=== PATIENT | male | born 1980 | race African-American/Black ===

== ENCOUNTER → 2016-11-09 | Outpatient (CLI) | payer OTHER ==
[~2016-11-09] MED LIST: CARAFATE S1 GM/10 ML PO; CLINDAMYCIN300 MG PO; METRONIDAZOLE500 MG PO; MOTRIN 200200 MG/TAB PO; NO HOME MEDICATIONS; TUSS PO; VICODIN 5/5001 UDTAB PO; ZITHROMAX Z PA250 MG PO
== END ==
LOC: COL.RAD 12:12
DX: S49.91XA Unspecified injury of right shoulder and upper arm, initial encounter (principal)

== ENCOUNTER 2018-03-03 10:26 | Emergency (ER) | payer SELFPAY ==
[~2018-03-03] VITALS: Ht 193 cm; Wt 75.0 kg
[2018-03-03 10:31] VITALS: BP 147/88; TEMP 99.4
[2018-03-03] MEDS ORDERED: AMOXICILLIN875 MG PO (11:28)
[2018-03-03 11:43] VITALS: PULSE 76
== END 2018-03-03 11:43 | disposition home or self-care (01) ==
LOC: COL.ER 10:26
DX: J03.90 Acute tonsillitis, unspecified (principal)

== ENCOUNTER 2018-09-22 06:27 | Emergency (ER) | payer SELFPAY ==
[~2018-09-22] VITALS: Ht 193 cm; Wt 70.5 kg
[~2018-09-22 06:27] MED LIST changes: +AMOXICILLIN875 MG PO
[2018-09-22 06:31] VITALS: TEMP 98.6
[2018-09-22 07:15] LABS: BASO # 0.1 (0.0-0.2); BASO % 0.6 % (0.0-2.0); EOS # 0.1 (0.0-0.7); EOS % 1.1 % (0-4.0); GRAN # 6.7 (1.4-6.5); GRAN % 63.8 % (42.2-75.2); HEMATOCRIT 39.7 % (42.0-52.0); HEMOGLOBIN 13.5 g/dl (13.5-18.0); LYMPH # 2.2 (1.2-3.4); LYMPH % 20.6 % (20.0-51.0); MEAN CELL VOLUME 87 fl (80.0-100.0); MEAN CORPUSCULAR HEMOGLOBIN 30 pg (27.0-31.0); MEAN CORPUSCULAR HGB CONC 34 g/dl (33.0-37.0); MEAN PLATELET VOLUME 8.8 fl (7.4-10.4); MONO # 1.4 (0.1-0.6); MONO % 13.7 % (1.7-9.3); PLATELET COUNT 216 K/mm3 (130-400); RED BLOOD COUNT 4.56 M/mm3 (4.20-5.60); REDCELL DISTRIBUTION WIDTH-CV 13.6 % (11.5-14.5)
[2018-09-22 07:19] LABS: INR 1.2 (0.8-3.0); PROTHROMBIN TIME 13.6 SECONDS (9.7-12.8)
[2018-09-22 07:36] LABS: PARTIAL THROMBOPLASTIN TIME 35.3 SECONDS (26.0-37.0)
[2018-09-22 07:37] LABS: ALANINE AMINOTRANSFERASE 14 U/L (21-72); ALBUMIN 3.9 gm/dL (3.5-5.0); ALKALINE PHOSPHATASE 63 U/L (50-136); ANION GAP 12 mmol/L (7-16); AST,SGOT 21 U/L (15-37); BILIRUBIN,TOTAL 0.8 mg/dL (0.0-1.0); BLOOD UREA NITROGEN 11 mg/dL (9-20); CALCIUM 9.1 mg/dL (8.4-10.2); CARBON DIOXIDE 25 mmol/L (22-30); CHLORIDE 105 mmol/L (98-107); CREATININE, serum 0.92 (0.66-1.25); GLUCOSE 91 mg/dL (74-106); POTASSIUM 3.7 mmol/L (3.4-5.0); SODIUM 141 mmol/L (137-145); TOTAL PROTEIN 7.9 gm/dL (6.4-8.2)
[2018-09-22] MEDS ORDERED: ZITHROMAX Z PA250 MG PO (07:41)
[2018-09-22] MEDS ORDERED: TESSALON PERLE200 MG PO (07:44)
[2018-09-22 07:52] LABS: TROPONIN-I < 0.012 ng/mL (0.000-0.035)
[2018-09-22 08:40] VITALS: BP 119/66; PULSE 74
== END 2018-09-22 08:40 | disposition home or self-care (01) ==
LOC: COL.ER 06:27
PROVIDERS: Emergency Medicine
DX: J20.9 Acute bronchitis, unspecified (principal); R07.81 Pleurodynia; F17.210 Nicotine dependence, cigarettes, uncomplicated; Z98.890 Other specified postprocedural states

== ENCOUNTER 2018-12-28 18:27 | Emergency (ER) | payer SELFPAY ==
[~2018-12-28] VITALS: Ht 190.5 cm; Wt 75.0 kg
[~2018-12-28 18:27] MED LIST changes: +TESSALON PERLE200 MG PO
[2018-12-28 18:44] VITALS: BP 134/79; TEMP 99.8
[2018-12-28] MEDS ORDERED: AMOXICILLIN 8751 TAB PO (19:45)
[2018-12-28 20:02] VITALS: PULSE 87
== END 2018-12-28 20:00 | disposition home or self-care (01) ==
LOC: COL.ER 18:27
DX: S02.81XA Fracture of other specified skull and facial bones, right side, initial encounter for closed fracture (principal); S01.111A Laceration without foreign body of right eyelid and periocular area, initial encounter; Z23 Encounter for immunization; Y04.8XXA Assault by other bodily force, initial encounter

== ENCOUNTER 2020-12-10 18:27 | Emergency (ER) | payer SELFPAY ==
[~2020-12-10] VITALS: Ht 193 cm; Wt 75.0 kg
[~2020-12-10 18:27] MED LIST changes: +AMOXICILLIN 8751 TAB PO
[2020-12-10 18:50] VITALS: TEMP 99.1
[2020-12-10 19:34] LABS: HEMATOCRIT 38.5 % (42.0-52.0); HEMOGLOBIN 13.3 g/dl (13.5-18.0); MEAN CELL VOLUME 86 fl (80.0-100.0); MEAN CORPUSCULAR HEMOGLOBIN 30 pg (27.0-31.0); MEAN CORPUSCULAR HGB CONC 35 g/dl (33.0-37.0); MEAN PLATELET VOLUME 9.1 fl (7.4-10.4); PLATELET COUNT 146 K/mm3 (130-400); RED BLOOD COUNT 4.46 M/mm3 (4.20-5.60); REDCELL DISTRIBUTION WIDTH-CV 14.3 % (11.5-14.5)
[2020-12-10 19:51] VITALS: BP 142/70; PULSE 62
== END 2020-12-10 19:51 | disposition home or self-care (01) ==
LOC: COL.ER 18:27
PROVIDERS: Physician Assistant
DX: U07.1 COVID-19 (principal)

== ENCOUNTER 2021-01-09 07:57 | Emergency (ER) | payer SELFPAY ==
[~2021-01-09] VITALS: Ht 193 cm; Wt 75.0 kg
[2021-01-09 08:22] VITALS: BP 122/75; TEMP 98.3
[2021-01-09] MEDS ORDERED: IBU800 M1 PO (08:39)
[2021-01-09 08:51] VITALS: PULSE 71
== END 2021-01-09 08:51 | disposition home or self-care (01) ==
LOC: COL.ER 07:57
DX: M54.50 Low back pain, unspecified (principal); F17.200 Nicotine dependence, unspecified, uncomplicated; Z88.6 Allergy status to analgesic agent

== ENCOUNTER 2021-08-18 17:41 | Emergency (ER) | payer SELFPAY ==
[~2021-08-18] VITALS: Ht 193 cm; Wt 70.5 kg
[~2021-08-18 17:41] MED LIST changes: +IBU800 M1 PO
[2021-08-18 18:05] VITALS: TEMP 98.2
[2021-08-18] MEDS ORDERED: PREDNISONE20 MG PO (18:17)
[2021-08-18 18:26] VITALS: BP 122/86; PULSE 77
== END 2021-08-18 18:26 | disposition home or self-care (01) ==
LOC: COL.ER 17:41
DX: L24.9 Irritant contact dermatitis, unspecified cause (principal); F17.210 Nicotine dependence, cigarettes, uncomplicated; Z28.311 Partially vaccinated for COVID-19